=== PATIENT | male | born 1945 | race Caucasian/White ===

== ENCOUNTER → 2018-07-10 | Outpatient (REF) | payer MEDICARE | LOC: M LAB LCGH 09:21 | PROVIDERS: ATTEND Nurse Practitioner Family | DX: D22.39 Melanocytic nevi of other parts of face (principal) ==

== ENCOUNTER → 2019-09-03 | Outpatient (CLI) | payer MEDICARE ==
[~2019-09-03] MED LIST: BETA PO; CIDA500T2 PO; COQ-100C5 PO; CVS500CA5 PO; GARL500C2 PO; GRAP60TA PO; SUPECAP7 PO; THYMEX PO; TUMERIC COMPLEX PO; [UNRECOGNIZED DRUG - OTHER] PO; [UNRECOGNIZED DRUG - OTHER] PO; [UNRECOGNIZED DRUG - OTHER] PO; [UNRECOGNIZED DRUG - OTHER] PO; [UNRECOGNIZED DRUG - OTHER] PO; [UNRECOGNIZED DRUG - OTHER] PO; [UNRECOGNIZED DRUG - REMARK] PO; albaplex PO; aloe vera juice PO; antronex PO; cataplex PO; colloidal silver; immuplex PO; prostagenix PO; tumeric curcumin PO
== END ==
LOC: M ONCR 09:33
PROVIDERS: ATTEND Radiology Radiation Oncology
DX: C61 Malignant neoplasm of prostate (principal); D41.00 Neoplasm of uncertain behavior of unspecified kidney; K40.00 Bilateral inguinal hernia, with obstruction, without gangrene, not specified as recurrent; K64.8 Other hemorrhoids; N13.30 Unspecified hydronephrosis; N30.00 Acute cystitis without hematuria; N43.40 Spermatocele of epididymis, unspecified; I10 Essential (primary) hypertension; Z88.8 Allergy status to other drugs, medicaments and biological substances

== ENCOUNTER 2024-08-27 10:09 | Emergency (ER) | payer MEDICARE ==
[~2024-08-27] VITALS: Ht 167.6 cm; Wt 74.2 kg
[~2024-08-27 10:09] MED LIST changes: -GARL500C2 PO; +GARL500C6 PO
[2024-08-27 11:14] LABS: KETONE, URINE AUTO RFX 1+ mg/dL (NEGATIVE); LEUKOCYTE ESTERASE UR AUTO RFX 3+ (NEGATIVE); MUCUS, URINE RFX SMALL (NEGATIVE); NITRITE, URINE AUTO RFX NEGATIVE (NEGATIVE); RBC, URINE AUTO RFX 147 /HPF (0-3); SQUAM EPITHELIAL CELL UR AURFX 0 /HPF (0-6); WBC, URINE AUTO RFX TNTC /HPF (0-3); YEAST LIKE CELL URINE AUTO RFX LARGE
[2024-08-27 13:18] LABS: BASO # 0.0 10^3/uL (0.0-0.2); BASO % 0.2 % (0.0-1.0); EOS # 0.0 10^3/uL (0.0-0.5); EOS % 0.1 % (0.0-3.0); LYMPH # 0.7 10^3/uL (1.5-5.0); LYMPH % 7.4 % (24.0-44.0); MONO # 0.8 10^3/uL (0.0-0.8); MONO % 8.4 % (2.0-8.0); NEUTROPHILS # 8.1 10^3/uL (1.5-8.5); NEUTROPHILS % 83.5 % (36.0-66.0); PLATELET COUNT, AUTOMATED 264 10^3/uL (150-450)
[2024-08-27 13:34] LABS: ALT/SGPT 22 U/L (7.0-40); AST/SGOT 22 U/L (<34); CALCIUM LEVEL 9.0 MG/DL (8.3-10.6); CARBON DIOXIDE LEVEL 25 MMOL/L (20-31); CHLORIDE LEVEL 105 MMOL/L (98-107); CREATININE FOR GFR 0.79 MG/DL (0.70-1.30); GLOMERULAR FILTRATION RATE > 90.0 (>42); POTASSIUM SERUM 3.9 MMOL/L (3.5-5.1); SODIUM LEVEL 140 MMOL/L (136-145)
[2024-08-27] MEDS: LIDOCAINE 2% 5 ML JELLY UROJET TOP ONE (14:22)
[2024-08-27] MEDS ORDERED: TAMS1CAP17 PO (14:44)
[2024-08-27] MEDS ORDERED: med rec comment (14:45)
[2024-08-27] MEDS ORDERED: HOME MED LIST COMPLETE! XX SCH (14:50)
[2024-08-27] MEDS ORDERED: BACT800T5 PO (15:00)
[2024-08-27 15:07] VITALS: BP 158/74; TEMP 100.2; O2SAT 96
[2024-08-27] MEDS ORDERED: BACTRIM 160MG/800MG DS TAB PO ONE (15:20)
[2024-08-27] MEDS ORDERED: ACETAMINOPHEN 325 MG TAB PO ONE (15:20)
== END 2024-08-27 15:25 | disposition home or self-care (01) ==
LOC: M ED 10:09
DX: N39.0 Urinary tract infection, site not specified (principal); N45.1 Epididymitis; Z85.46 Personal history of malignant neoplasm of prostate; Z88.8 Allergy status to other drugs, medicaments and biological substances